=== PATIENT | female | born 1995 | race African-American/Black ===

== ENCOUNTER 2018-05-15 10:08 | Emergency (ER) | payer MEDICAID ==
[~2018-05-15] VITALS: Ht 172.7 cm; Wt 61.0 kg
[2018-05-15] MEDS ORDERED: SODIUM CHLORIDE 0.9% 1,000 ML IV ONE (10:26)
[2018-05-15] MEDS ORDERED: FAMOTIDINE 20MG/2ML VIAL IV ONE (10:30)
[2018-05-15] MEDS ORDERED: ONDANSETRON HCL 4MG/2ML VIAL IV ONE (10:30)
[2018-05-15] MEDS ORDERED: MORPHINE SULFATE 4 MG/ML CPJ (NOT FOR IM USE) IV ONE (10:45)
[2018-05-15 11:48] LABS: BASOPHILS % 0.4 % (0.0-2.0); EOSINOPHILS % 0.1 % (0.0-5.0); HEMATOCRIT. 30.6 % (36.0-48.0); HEMOGLOBIN. 10.3 g/dL (12.0-16.0); LYMPHOCYTES % 22.9 % (20.0-50.0); MEAN CORPUSCULAR HEMOGLOBIN 29.1 pg (28.0-32.0); MEAN PLATELET VOLUME 10.2 fl (7.4-10.4); MONOCYTES % 7.7 % (2.0-8.0); NEUTROPHILS % 68.9 % (40.0-76.0); PLATELET 132 x1000/uL (130-400); RED BLOOD CELL COUNT 3.55 mill/uL (4.2-5.4); RED CELL DISTRIBUTION WIDTH 14.2 % (11.6-14.6)
[2018-05-15 11:58] LABS: CHLORIDE 105 mEq/L (98-107)
[2018-05-15 11:59] LABS: CLARITY URINE TURBID (CLEAR); KETONES URINE TRACE (NEGATIVE); LEUKOCYTE ESTERASE URINE 3+ (NEGATIVE); NITRITE URINE NEGATIVE (NEGATIVE); OCCULT BLOOD URINE 3+ (NEGATIVE); PH URINE 7.5 (4.5-8.0); PROTEIN URINE 2+ (NEGATIVE); SPECIFIC GRAVITY URINE 1.013 (1.005-1.030)
[2018-05-15 12:01] LABS: COLOR URINE YELLOW (YELLOW)
[2018-05-15 12:17] LABS: *AMPHETAMINES SCREEN URINE NEGATIVE (NEGATIVE); *BARBITURATES SCREEN URINE NEGATIVE (NEGATIVE)
[2018-05-15 12:18] LABS: *BENZODIAZEPINES SCREEN URINE NEGATIVE (NEGATIVE); *COCAINE SCREEN URINE NEGATIVE (NEGATIVE); METHADONE URINE SCREEN NEGATIVE (NEGATIVE); OPIATES URINE SCREEN NEGATIVE (NEGATIVE); PHENCYCLIDINE URINE SCREEN NEGATIVE (NEGATIVE)
[2018-05-15 12:19] LABS: CANNABINOID URINE SCREEN NEGATIVE (NEGATIVE)
[2018-05-15] MEDS ORDERED: LEVOFLOXACIN 500MG PREMIX 100 ML IV ONE (12:30)
[2018-05-15] MEDS ORDERED: KETOROLAC 30MG/ML VIAL IV ONE (13:45)
[2018-05-15] MEDS ORDERED: IOHEXOL-300 100 ML BOTTLE ONE (14:13)
[2018-05-15 16:19] VITALS: BP 129/71
== END 2018-05-15 16:21 | disposition home or self-care (01) ==
LOC: ER 10:08
DX: N39.0 Urinary tract infection, site not specified (principal); J45.909 Unspecified asthma, uncomplicated; F12.10 Cannabis abuse, uncomplicated; R11.2 Nausea with vomiting, unspecified; Z88.0 Allergy status to penicillin; Z79.899 Other long term (current) drug therapy
CPT/HCPCS: 36415; 74177; 80053; 80305; 81003; 81025; 83690; 85025; 87077; 87086; 87186; 96361; 96365; 96375; 99285; J1885; J1956; J2270; J2405; J3490; J7030; Q9967

== ENCOUNTER 2018-07-10 03:12 | Emergency (ER) | payer BC, MEDICAID ==
[~2018-07-10] VITALS: Ht 160 cm; Wt 54.0 kg
[2018-07-10] MEDS ORDERED: SODIUM CHLORIDE 0.9% 1,000 ML IV ONE (04:15)
[2018-07-10] MEDS ORDERED: KETOROLAC 15MG/ML VIAL IV ONE (04:15)
[2018-07-10] MEDS ORDERED: METOCLOPRAMIDE HCL 10MG/2ML VIAL IV ONE (04:15)
[2018-07-10 06:04] LABS: CLARITY URINE CLEAR (CLEAR); COLOR URINE YELLOW (YELLOW); KETONES URINE NEGATIVE (NEGATIVE); LEUKOCYTE ESTERASE URINE 1+ (NEGATIVE); NITRITE URINE NEGATIVE (NEGATIVE); OCCULT BLOOD URINE NEGATIVE (NEGATIVE); PROTEIN URINE NEGATIVE (NEGATIVE); SPECIFIC GRAVITY URINE 1.015 (1.005-1.030)
[2018-07-10 06:57] VITALS: BP 109/55
== END 2018-07-10 07:00 | disposition home or self-care (01) ==
LOC: ER 05:07
DX: N30.90 Cystitis, unspecified without hematuria (principal); F41.9 Anxiety disorder, unspecified; G43.909 Migraine, unspecified, not intractable, without status migrainosus; Z88.0 Allergy status to penicillin
CPT/HCPCS: 81003; 81025; 96374; 96375; 99284; J1885; J2765; J7030

== ENCOUNTER 2018-07-13 04:26 | Emergency (ER) | payer MEDICAID ==
[~2018-07-13] VITALS: Ht 160 cm; Wt 60.0 kg
[2018-07-13] MEDS ORDERED: DIPHENHYDRAMINE 50MG/ML VIAL IV ONE (05:45)
[2018-07-13] MEDS ORDERED: SODIUM CHLORIDE 0.9% 1,000 ML IV ONE (05:45)
[2018-07-13] MEDS ORDERED: METOCLOPRAMIDE HCL 10MG/2ML VIAL IV ONE (05:45)
[2018-07-13] MEDS ORDERED: KETOROLAC 15MG/ML VIAL IV ONE (05:45)
[2018-07-13 06:26] LABS: BASOPHILS % 0.5 % (0.0-2.0); EOSINOPHILS % 0.5 % (0.0-5.0); HEMATOCRIT. 33.8 % (36.0-48.0); HEMOGLOBIN. 11.1 g/dL (12.0-16.0); LYMPHOCYTES % 40.4 % (20.0-50.0); MEAN CORPUSCULAR HEMOGLOBIN 28.5 pg (28.0-32.0); MEAN PLATELET VOLUME 9.6 fl (7.4-10.4); MONOCYTES % 11.3 % (2.0-8.0); NEUTROPHILS % 47.3 % (40.0-76.0); PLATELET 134 x1000/uL (130-400); RED BLOOD CELL COUNT 3.89 mill/uL (4.2-5.4); RED CELL DISTRIBUTION WIDTH 14.4 % (11.6-14.6)
[2018-07-13 06:34] LABS: CHLORIDE 105 mEq/L (98-107)
[2018-07-13 06:50] LABS: HCG SCREEN NEGATIVE
[2018-07-13 09:23] VITALS: BP 93/55
== END 2018-07-13 09:24 | disposition home or self-care (01) ==
LOC: ER 04:26
DX: R51 Headache (principal); R10.0 Acute abdomen; R07.89 Other chest pain; F17.210 Nicotine dependence, cigarettes, uncomplicated; Z71.6 Tobacco abuse counseling; Z88.0 Allergy status to penicillin
CPT/HCPCS: 36415; 70450; 71045; 80053; 84703; 85025; 93005; 96361; 96374; 96375; 99285; J1200; J1885; J2765; J7030